=== PATIENT | male | born 1990 | race Hispanic/Latino ===

== ENCOUNTER 2021-01-28 15:17 | Emergency (ER) | payer SELFPAY ==
[~2021-01-28] VITALS: Ht 167.6 cm; Wt 81.6 kg
[2021-01-28 15:27] VITALS: BP 139/91
[2021-01-28] MEDS ORDERED: CEPH500C2 PO (20:39)
[2021-01-28] MEDS ORDERED: IBUPROFEN 600 MG TABLET PO ONE (21:30)
[2021-01-28] MEDS ORDERED: CEPHALEXIN 500 MG CAPSULE PO ONE (21:30)
[2021-01-28] MEDS ORDERED: LIDOCAINE HCL 1% 20 ML VIAL INJ ONE (21:30)
[2021-01-28] MEDS ORDERED: ACETAMINOPHEN WITH CODEINE 1 TAB TAB PO ONE (21:30)
== END 2021-01-28 21:00 | disposition home or self-care (01) ==
LOC: EDH 15:17
DX: S51.812A Laceration without foreign body of left forearm, initial encounter (principal); Z88.6 Allergy status to analgesic agent; Z88.8 Allergy status to other drugs, medicaments and biological substances; Z79.2 Long term (current) use of antibiotics; W26.0XXA Contact with knife, initial encounter; Y93.89 Activity, other specified; Y92.89 Other specified places as the place of occurrence of the external cause; Y99.8 Other external cause status
CPT/HCPCS: 12002; 73090